=== PATIENT | male | born 1945 | race Caucasian/White ===

== ENCOUNTER → 2021-06-04 | Outpatient (CLI) | payer MEDICARE | LOC: LAB 14:47 → LAB SHORT 14:47 | DX: D48.5 Neoplasm of uncertain behavior of skin (principal); C44.712 Basal cell carcinoma of skin of right lower limb, including hip | CPT/HCPCS: 88305 ==

== ENCOUNTER → 2022-06-02 | Outpatient (CLI) | payer MEDICARE | END | disposition home or self-care (01) | LOC: PLD 15:02 → LAB SHORT 15:02 | DX: D22.72 Melanocytic nevi of left lower limb, including hip (principal) | CPT/HCPCS: 88305 ==

== ENCOUNTER → 2023-05-04 | Outpatient (CLI) | payer MEDICARE | END | disposition home or self-care (01) | LOC: PLD 11:57 → LAB SHORT 11:57 | DX: D04.62 Carcinoma in situ of skin of left upper limb, including shoulder (principal) | CPT/HCPCS: 88305 ==

== ENCOUNTER → 2023-06-16 | Outpatient (CLI) | payer MEDICARE | LOC: LAB 12:24 → LAB SHORT 12:24 | DX: H53.2 Diplopia (principal) | CPT/HCPCS: 85651; 86140 ==